=== PATIENT | female | born 1990 | race Caucasian/White ===

== ENCOUNTER 2017-12-15 09:07 | Outpatient (CLI) | payer OTHER | END 2017-12-15 09:13 | disposition home or self-care (01) | LOC: LAB 09:07 | DX: Z11.3 Encounter for screening for infections with a predominantly sexual mode of transmission (principal) ==

== ENCOUNTER 2019-12-25 22:17 | Emergency (ER) | payer OTHER ==
[~2019-12-25] VITALS: Ht 160 cm; Wt 63.5 kg
== END 2019-12-25 23:39 | disposition home or self-care (01) ==
LOC: ER 22:17
DX: R00.2 Palpitations (principal); R07.89 Other chest pain; Z03.818 Encounter for observation for suspected exposure to other biological agents ruled out

== ENCOUNTER → 2020-03-05 18:00 | Outpatient (CLI) | payer OTHER | END | disposition home or self-care (01) | LOC: PPH VACUNA 18:00 | DX: Z23 Encounter for immunization (principal) ==

== ENCOUNTER 2021-02-28 09:00 | Outpatient (CLI) | payer OTHER | END 2021-02-28 09:15 | disposition home or self-care (01) | LOC: PPH VACUNA 09:00 | PROVIDERS: ATTEND Emergency Medicine Pediatric Emergency Medicine | DX: Z23 Encounter for immunization (principal) | CPT/HCPCS: 90686; G0008 ==

== ENCOUNTER 2021-08-13 05:11 | Emergency (ER) | payer OTHER ==
[~2021-08-13] VITALS: Ht 152.4 cm; Wt 61.2 kg
[2021-08-13] MEDS ORDERED: INTESTINEX680 M1 PO (06:16)
[2021-08-13] MEDS ORDERED: MEDROLPACK PO (06:16)
[2021-08-13] MEDS ORDERED: CLINDAMYCIN HC300 MG PO (06:16)
== END 2021-08-13 06:38 | disposition home or self-care (01) ==
LOC: ER 05:11
DX: H92.02 Otalgia, left ear (principal); Z88.6 Allergy status to analgesic agent; Z88.0 Allergy status to penicillin

== ENCOUNTER 2021-10-02 03:04 | Emergency (ER) | payer OTHER ==
[~2021-10-02] VITALS: Ht 154.9 cm; Wt 61.2 kg
[~2021-10-02 03:04] MED LIST: CLINDAMYCIN HC300 MG PO; INTESTINEX680 M1 PO; MEDROLPACK PO
== END 2021-10-02 06:01 ==
LOC: ER 03:04
DX: Z77.21 Contact with and (suspected) exposure to potentially hazardous body fluids (principal); Z88.0 Allergy status to penicillin; Z88.6 Allergy status to analgesic agent

== ENCOUNTER 2021-12-27 08:43 | Emergency (ER) | payer OTHER ==
[~2021-12-27] VITALS: Ht 154.9 cm; Wt 61.2 kg
[2021-12-27] MEDS ORDERED: INTESTINEX680 M1 PO (13:25)
[2021-12-27] MEDS ORDERED: LEVSIN/SL0.125 MG PO (13:25)
[2021-12-27] MEDS ORDERED: PEPCID AC20 MG PO (13:25)
[2021-12-27] MEDS ORDERED: ONDANSETRON ODT4 MG PO (13:25)
[2021-12-27] MEDS ORDERED: PEDIALYTE1000 ML (13:36)
== END 2021-12-27 13:42 ==
LOC: ER 08:43
DX: K52.9 Noninfective gastroenteritis and colitis, unspecified (principal); A05.9 Bacterial foodborne intoxication, unspecified; Z20.822 Contact with and (suspected) exposure to COVID-19; E86.0 Dehydration; Z88.0 Allergy status to penicillin; Z88.6 Allergy status to analgesic agent

== ENCOUNTER 2022-04-02 09:45 | Outpatient (CLI) | payer OTHER ==
[~2022-04-02 09:45] MED LIST changes: +LEVSIN/SL0.125 MG PO; +ONDANSETRON ODT4 MG PO; +PEDIALYTE1000 ML; +PEPCID AC20 MG PO
== END 2022-04-02 09:51 | disposition home or self-care (01) ==
LOC: RAD 09:45
DX: M99.01 Segmental and somatic dysfunction of cervical region (principal); M99.03 Segmental and somatic dysfunction of lumbar region

== ENCOUNTER 2022-12-24 05:06 | Emergency (ER) | payer OTHER ==
[~2022-12-24] VITALS: Ht 154.9 cm; Wt 68.0 kg
[2022-12-24 05:40] LABS: HEMATOCRIT 38.2 % (36.0-45.00); MEAN CELL VOLUME 84.3 fL (80.00-100.00); MEAN CORPUSCULAR HEMOGLOBIN 28.7 pg (27.00-32.0); PLATELET COUNT 307 K/uL (150-450); RED BLOOD COUNT 4.54 M/uL (4.00-6.00); RED CELL DISTRIBUTION WIDTH 13.4 % (11.5-14.5)
[2022-12-24] MEDS ORDERED: ALBUTEROL2.5 MG/3 M IH (06:16)
[2022-12-24] MEDS ORDERED: ZITHROMAX500 MG PO (06:16)
[2022-12-24] MEDS ORDERED: ZYNCOF 20-400120 ML PO (06:16)
[2022-12-24] MEDS ORDERED: BUDESONIDE0.5 MG/2 M IH (06:16)
== END 2022-12-24 06:29 ==
LOC: ER 05:06
PROVIDERS: General Practice
DX: J20.9 Acute bronchitis, unspecified (principal); R06.02 Shortness of breath; R05.9 Cough, unspecified; Z20.822 Contact with and (suspected) exposure to COVID-19

== ENCOUNTER 2022-12-27 12:11 | Inpatient (IN) | payer OTHER ==
[~2022-12-27] VITALS: Ht 154.9 cm; Wt 68.0 kg
[~2022-12-27 12:11] MED LIST changes: +ALBUTEROL2.5 MG/3 M IH; +BUDESONIDE0.5 MG/2 M IH; +ZITHROMAX500 MG PO; +ZYNCOF 20-400120 ML PO
--- NOTE | 2022-12-27 12:23 | NUR ---
SE RECIBE PTE ALERTA Y ORIENTADA X3 PTE REFIERE QUE LLEVA 3 QU[place] CON LOS SINTOMAS DE [place] Y BRANDON EN LA NOCHE EMPEORO LA MISMA INDICA QUE SE MEDICO Y FUNCION EL TRATAMIENTO TEMPORAL. SE ARPITA VITALES Y CORRIE OBSERVACION.
[2022-12-27 12:50] LABS: HEMATOCRIT 36.6 % (36.0-45.00); HEMOGLOBIN 12.8 g/dL (12.0-15.00); MEAN CELL VOLUME 85.5 fL (80.00-100.00); MEAN CORPUSCULAR HEMOGLOBIN 29.9 pg (27.00-32.0); PLATELET COUNT 332 K/uL (150-450); RED BLOOD COUNT 4.28 M/uL (4.00-6.00); RED CELL DISTRIBUTION WIDTH 13.7 % (11.5-14.5)
[2022-12-27 12:52] LABS: ABG PH 7.443 (7.35-7.45); ABG PO2 82.9 mmHg (80-100); ABG pCO2 32.8 mmHg (35-45); BASE EXCESS -1.3 mmol/l; BICARBONATE 21.9 mmol/l (23-25); SaO2 96.5 %; Tco2 22.9 mmol/l
[2022-12-27 13:05] LABS: CALCIUM 9.2 mg/dL (8.5-10.1); CREATININE SERUM 0.8 mg/dL (0.55-1.02); GFR 83.66; POTASSIUM 3.22 mEq/L (3.5-5.1)
--- NOTE | 2022-12-27 13:05 | NUR ---
PTE ALERTA,ESTABLE Y ORIENTADA.SE EDUCA SOBRE EL TRATAMIENTO QUE RECIBIRA EN EL HOSPITAL Y ESTA REFIERE ENTENDER
[2022-12-27 13:20] LABS: allen test SATISFACTORY; o2 21 %; puncture site RADIAL LEFT
[2022-12-28 06:15] LABS: ABG PH 7.425 (7.35-7.45); ABG PO2 105.1 mmHg (80-100); ABG pCO2 31.8 mmHg (35-45); BASE EXCESS -2.9 mmol/l; BICARBONATE 20.4 mmol/l (23-25); SaO2 98.1 %; Tco2 21.4 mmol/l
[2022-12-28 08:06] LABS: o2 21 %
[2022-12-28 08:07] LABS: allen test SATISFACTORY; puncture site RADIAL RIGHT
[2022-12-29 07:09] LABS: HEMATOCRIT 40.3 % (36.0-45.00); HEMOGLOBIN 13.7 g/dL (12.0-15.00); MEAN CELL VOLUME 88.8 fL (80.00-100.00); MEAN CORPUSCULAR HEMOGLOBIN 30.2 pg (27.00-32.0); MEAN CORPUSCULAR HGB CONC 34.1 g/dl (32.0-36.0); PLATELET COUNT 361 K/uL (150-450); RED BLOOD COUNT 4.54 M/uL (4.00-6.00); RED CELL DISTRIBUTION WIDTH 13.8 % (11.5-14.5)
[2022-12-29 07:22] LABS: INR 0.98; PARTIAL THROMBOPLASTIN TIME 20.5 SECONDS (22.0-34.0); PROTHROMBIN TIME 10.3 SECONDS (9.0-11.5)
[2022-12-29 07:37] LABS: ALBUMIN 4.3 gm/dL (3.4-5.0); ALKALINE PHOSPHATASE 45 U/L (50-136); ALT/SGPT 19 U/L (12-78); ANION GAP 11 (10.0-20.0); AST/SGOT 12 U/L (15-37); BILIRUBIN TOTAL 0.71 mg/dL (0.3-1.2); BILIRUBIN,CONJUGATED 0.17 mg/dL (0.0-0.2); BILIRUBIN,UNCONJUGATED 0.54 mg/dL (0.0-0.6); BLOOD UREA NITROGEN 10 mg/dL (7-18); BUN CREA RATIO 12 (7.0-25.0); CALCIUM 9.5 mg/dL (8.5-10.1); CARBON DIOXIDE 24 mEq/L (21-32); CHLORIDE 108 mmol/L (98-107); CHOL HDL RATIO 2.4 (0-5.0); CHOLESTEROL 218 mg/dL (0-200); CREATININE SERUM 0.81 mg/dL (0.55-1.02); GFR 82.47; GLOBULINA 3.4 G/DL (2.4-3.5); GLUCOSE FASTING 119 mg/dL (65-100); HDL 91 mg/dl (40-60); LDL 112 mg/dl (0-130); OSMOLALITY SERUM 278 MOSM/KG (275-295); POTASSIUM 4.05 mEq/L (3.5-5.1); SODIUM 139 mmol/L (136-145); TOTAL PROTEIN 7.7 gm/dL (6.4-8.2); TRIGLYCERIDES 77 mg/dL (0-150); VLDL 15 (0-39)
[2022-12-29 07:38] LABS: ERYTHROCYTE SEDIMENTATION RATE 4 mm/hr
[2022-12-29 07:40] LABS: C-REACTIVE PROTEIN < 0.29 MG/DL (0.00-0.29)
[2022-12-29 09:07] LABS: URINE APPEARANCE Clear; URINE BILIRRUBIN Negative (NEGATIVE); URINE BLOOD Negative; URINE COLOR Yellow; URINE GLUCOSE Negative (NEGATIVE); URINE LEUKOCYTE Negative; URINE NITRATE Negative; URINE PROTEIN Negative (NEGATIVE); URINE UROBILINOGEN 0.2 E.U./dl
[2022-12-29 09:11] LABS: URINE BACTERIA 561.7 uL (0.0-1933); URINE EPITHELIAL CELLS 8.4 uL (0.0-38.8); URINE RBC 4.1 uL (0.0-20.8); URINE WBC 4.4 uL (0.0-23.2)
[2022-12-30] MEDS ORDERED: MEDROLPACK PO (17:40)
== END 2022-12-30 18:16 | disposition home or self-care (01) | DRG 203 ==
LOC: ER 12:11 → SURH 12-28 01:27
PROVIDERS: General Practice; ADMIT Internal Medicine; ATTEND Internal Medicine
DX: J45.51 Severe persistent asthma with (acute) exacerbation (principal)

== ENCOUNTER → 2023-01-08 06:17 | Outpatient (CLI) | payer OTHER ==
[2023-01-08 07:09] LABS: HEMATOCRIT 35.8 % (36.0-45.00); HEMOGLOBIN 12.6 g/dL (12.0-15.00); MEAN CELL VOLUME 85.9 fL (80.00-100.00); MEAN CORPUSCULAR HEMOGLOBIN 30.2 pg (27.00-32.0); MEAN CORPUSCULAR HGB CONC 35.1 g/dl (32.0-36.0); PLATELET COUNT 298 K/uL (150-450); RED BLOOD COUNT 4.17 M/uL (4.00-6.00); RED CELL DISTRIBUTION WIDTH 13.6 % (11.5-14.5)
[2023-01-08 07:22] LABS: ERYTHROCYTE SEDIMENTATION RATE < 1 mm/hr
[2023-01-08 08:02] LABS: ALBUMIN 3.8 gm/dL (3.4-5.0); ALKALINE PHOSPHATASE 46 U/L (50-136); ALT/SGPT 25 U/L (12-78); ANION GAP 8 (10.0-20.0); AST/SGOT 13 U/L (15-37); BILIRUBIN TOTAL 0.81 mg/dL (0.3-1.2); BLOOD UREA NITROGEN 13 mg/dL (7-18); BUN CREA RATIO 15 (7.0-25.0); CALCIUM 8.8 mg/dL (8.5-10.1); CARBON DIOXIDE 30 mEq/L (21-32); CHLORIDE 104 mmol/L (98-107); CHOL HDL RATIO 2.2 (0-5.0); CHOLESTEROL 185 mg/dL (0-200); CREATININE SERUM 0.86 mg/dL (0.55-1.02); FREE TRIODOTIRONINE 3.43 pg/ml (2.18-3.98); GFR 76.96; GLOBULINA 3.1 G/DL (2.4-3.5); GLUCOSE FASTING 77 mg/dL (65-100); HDL 84 mg/dl (40-60); LDL 86 mg/dl (0-130); OSMOLALITY SERUM 275 MOSM/KG (275-295); SODIUM 138 mmol/L (136-145); T4 TOTAL 11.24 UG/DL (4.8-13.9); TOTAL PROTEIN 6.9 gm/dL (6.4-8.2); TRIGLYCERIDES 73 mg/dL (0-150); VLDL 14 (0-39)
[2023-01-08 08:13] LABS: C-REACTIVE PROTEIN < 0.29 MG/DL (0.00-0.29)
[2023-01-08 09:15] LABS: URINE APPEARANCE Clear; URINE BILIRRUBIN Negative (NEGATIVE); URINE BLOOD Negative; URINE COLOR Yellow; URINE GLUCOSE Negative (NEGATIVE); URINE LEUKOCYTE Negative; URINE NITRATE Negative; URINE PROTEIN Negative (NEGATIVE); URINE UROBILINOGEN 0.2 E.U./dl
[2023-01-08 09:19] LABS: URINE BACTERIA 289.6 uL (0.0-1933); URINE EPITHELIAL CELLS 19.6 uL (0.0-38.8); URINE WBC 2.9 uL (0.0-23.2)
== END | disposition home or self-care (01) ==
LOC: LAB 06:17
PROVIDERS: ATTEND Internal Medicine
DX: Z13.29 Encounter for screening for other suspected endocrine disorder (principal); Z13.220 Encounter for screening for lipoid disorders; E55.9 Vitamin D deficiency, unspecified; R73.9 Hyperglycemia, unspecified; Z88.0 Allergy status to penicillin; Z88.6 Allergy status to analgesic agent

== ENCOUNTER 2023-02-23 11:41 | Outpatient (CLI) | payer OTHER | END 2023-02-23 11:46 | disposition home or self-care (01) | LOC: SONOGRAMA 11:41 | PROVIDERS: ATTEND Internal Medicine | DX: Z12.31 Encounter for screening mammogram for malignant neoplasm of breast (principal) ==

== ENCOUNTER 2023-03-10 08:15 | Outpatient (CLI) | payer OTHER ==
[2023-03-10 08:56] LABS: PH,URINE 6.5 (5.0-8.0); URINE APPEARANCE Clear; URINE BILIRRUBIN Negative (NEGATIVE); URINE BLOOD Negative; URINE COLOR Yellow; URINE GLUCOSE Negative (NEGATIVE); URINE LEUKOCYTE Negative; URINE NITRATE Negative; URINE PROTEIN Negative (NEGATIVE); URINE UROBILINOGEN 0.2 E.U./dl
[2023-03-10 09:00] LABS: URINE BACTERIA 324.8 uL (0.0-1933); URINE EPITHELIAL CELLS 4.7 uL (0.0-38.8); URINE RBC 2.5 uL (0.0-20.8)
[2023-03-10 09:02] LABS: HEMATOCRIT 37.5 % (36.0-45.00); HEMOGLOBIN 13.3 g/dL (12.0-15.00); MEAN CORPUSCULAR HEMOGLOBIN 30.5 pg (27.00-32.0); MEAN CORPUSCULAR HGB CONC 35.5 g/dl (32.0-36.0); PLATELET COUNT 320 K/uL (150-450); RED BLOOD COUNT 4.36 M/uL (4.00-6.00); RED CELL DISTRIBUTION WIDTH 12.2 % (11.5-14.5)
[2023-03-10 09:17] LABS: URINE WBC 1.6 uL (0.0-23.2)
[2023-03-10 09:32] LABS: ALBUMIN 4.1 gm/dL (3.4-5.0); BILIRUBIN TOTAL 0.69 mg/dL (0.3-1.2); CALCIUM 8.9 mg/dL (8.5-10.1); CHOL HDL RATIO 2.7 (0-5.0); CREATININE SERUM 0.78 mg/dL (0.55-1.02); GFR 86.14; GLOBULINA 2.9 G/DL (2.4-3.5); POTASSIUM 4.02 mEq/L (3.5-5.1); T4 TOTAL 9.75 UG/DL (4.8-13.9); TSH 2.16 uIU/mL (0.358-3.74)
== END 2023-03-10 08:17 | disposition home or self-care (01) ==
LOC: LAB 08:15
PROVIDERS: ATTEND General Practice
DX: Z13.29 Encounter for screening for other suspected endocrine disorder (principal); Z13.1 Encounter for screening for diabetes mellitus; Z13.220 Encounter for screening for lipoid disorders; D64.9 Anemia, unspecified